=== PATIENT | female | born 1980 | race Caucasian/White ===

== ENCOUNTER 2020-08-09 20:50 | Emergency (ER) | payer MEDICAID, OTHER ==
[~2020-08-09] VITALS: Ht 167.7 cm; Wt 63.5 kg
[2020-08-09 20:57] VITALS: BP 110/63
--- NOTE | 2020-08-09 21:04 | ED Upper Extremity ---
General Chief Complaint: Upper Extremity Stated Complaint: FALL - L ELBOW/R WRIST PAIN Source: patient Exam Limitations: no limitations History of Present Illness Date Seen by Provider: Aug 09, 2020 Time Seen by Provider: 21:02 Initial Comments To ER with left elbow and right wrist pain after a fall at home just prior to arrival. 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 Onset: just prior to arrival Severity: moderate Pain/Injury Location: left elbow; right wrist Method of Injury: fell Modifying Factors: Worse With Movement Allergies and Home Medications Patient Home Medication List Home Medication List Reviewed: Yes Review of Systems Constitutional: see HPI EENTM: see HPI Respiratory: no symptoms reported Cardiovascular: no symptoms reported Genitourinary: no symptoms reported Musculoskeletal: see HPI Skin: no symptoms reported Psychiatric/Neurological: No Symptoms Reported Physical Exam Vital Signs Capillary Refill : Height, Weight, BMI Height: '" Weight: lbs. oz. kg; BMI Method: General Appearance: WD/WN, no apparent distress Respiratory: no respiratory distress, no accessory muscle use Shoulder: normal inspection, normal ROM, pain Elbow/Forearm: Left, pain Wrist: Yes normal ROM, Yes ecchymosis, Yes pain Hand: normal inspection, non-tender Neurologic/Psychiatric: alert, normal mood/affect, oriented x 3 Skin: normal color, warm/dry Progress/Results/Core Measures Results/Orders My Orders Orders - VERONICA MILLER APRN Elbow, Left, 3 Views (08/09/20 20:55) Wrist, Right, 3 Views Or More (08/09/20 20:55) Departure Impression Primary Impression: Contusion of wrist Qualified Codes: S60.211A - Contusion of right wrist, initial encounter Additional Impression: Contusion of elbow Qualified Codes: S50.02XA - Contusion of left elbow, initial encounter Disposition: HOME, SELF-CARE Condition: Stable Departure-Patient Inst. Decision time for Depature: 21:04 Referrals: NO,LOCAL PHYSICIAN (PCP/Family) Primary Care Physician VERONICA MILLER APRN Aug 09, 2020 21:04
--- NOTE | 2020-08-09 21:20 | Diagnostic Imaging Report ---
INDICATION: Fall with left elbow pain. EXAMINATION: AP, oblique and lateral views of the left elbow were obtained. FINDINGS: No fracture or acute bony abnormality is seen. Joint spaces are unremarkable. IMPRESSION: Negative left elbow. Dictated by: Dictated on workstation # [id number]
--- NOTE | 2020-08-09 21:21 | Diagnostic Imaging Report ---
INDICATION: Fall with right wrist pain. EXAMINATION: AP, oblique and lateral views of the right wrist were obtained. FINDINGS: No fracture or acute bony abnormality is seen. Joint spaces appear unremarkable. IMPRESSION: Negative right wrist. Dictated by: Dictated on workstation # [id number]
== END 2020-08-09 21:35 | disposition home or self-care (01) ==
LOC: ER 20:53
DX: S50.02XA Contusion of left elbow, initial encounter (principal); S60.211A Contusion of right wrist, initial encounter; W19.XXXA Unspecified fall, initial encounter; Y92.009 Unspecified place in unspecified non-institutional (private) residence as the place of occurrence of the external cause
CPT/HCPCS: 73080; 73110

== ENCOUNTER 2021-01-09 06:40 | Emergency (ER) | payer MEDICAID ==
[~2021-01-09] VITALS: Ht 165 cm; Wt 68.0 kg
[2021-01-09] MEDS ORDERED: KETOROLAC 60 MG/2 ML VIAL IM STA (07:26)
[2021-01-09] MEDS ORDERED: ACETAMINOPHEN 500 MG TAB (TYLENOL) PO STA (07:26)
--- NOTE | 2021-01-09 08:26 | ED General ---
General Chief Complaint: Cough/Cold/Flu Symptoms Stated Complaint: FEVER,CHILLS,SOB,[place] Nursing Triage Note: PT TO ROOM10 PER W/C PT CO OF FEVERS, DRY COUGH [place] 10/10, BODY ACHES SINCE YESTERDAY Nursing Sepsis Screen: Possible Sepsis Risk Source of Information: Patient Exam Limitations: No Limitations History of Present Illness Date Seen by Provider: Jan 09, 2021 Time Seen by Provider: 07:31 Initial Comments Here with report of fever, cough, headache and body aches since yesterday morning. Works as a door dash driver messenger. Does not remember any specific contact with COVID-19. Also has left-sided facial pain with a tooth abscess but is not on antibiotics for the urgent care. She was concerned that this may be the problem. She has 2 middle school children and one is in summer school. No one around her is sick. She is not vaccinated. Timing/Duration: 1-2 Days Severity: Moderate Associated Systoms: Cough, Fever/Chills, Headaches; No Nausea/Vomiting, No Shortness of Air, No Weakness Allergies and Home Medications Allergies Coded Allergies: No Known Allergies (Verified Allergy, Unknown, 08/09/20) Patient Home Medication List Home Medication List Reviewed: Yes Review of Systems Review of Systems Constitutional: see HPI, chills, fever Respiratory: cough; No short of breath Cardiovascular: no symptoms reported Gastrointestinal: no symptoms reported Musculoskeletal: joint pain, muscle pain Skin: no symptoms reported All Other Systems Reviewed Negative Unless Noted: Yes Past Zfcleet-Shdgtx-Ihbjar Hx Past Med/Social Hx: Reviewed Nursing Past Med/Soc Hx Patient Social History Alcohol Use: Denies Use Smoking Status: Never a Smoker 2nd Hand Smoke Exposure: No Recent Infectious Disease Expo: No Recent Hopitalizations: No Seasonal Allergies Seasonal Allergies: No Past Medical History Surgeries: No Tubal Ligation Respiratory: No Cardiac: No Neurological: No : No Last Menstrual Period: Jan 02, 2021 Genitourinary: No Gastrointestinal: No Musculoskeletal: No Endocrine: No HEENT: No Cancer: No Psychosocial: No Integumentary: No Blood Disorders: No Family Medical History Reviewed Nursing Family Hx Physical Exam Vital Signs Vital Signs - First Documented 01/09/21 07:10 Temp 37.9 Pulse 101 Resp 18 B/P (MAP) 99/70 (80) Pulse Ox 97 O2 Delivery Room Air Capillary Refill : Less Than 3 Seconds Height, Weight, BMI Height: '" Weight: lbs. oz. kg; 24.00 BMI Method: General Appearance: WD/WN, Mild Distress HEENT: PERRL/EOMI, Pharyngeal Erythema, Other (Small abscess left upper posterior tooth) Neck: Non Tender, Supple Respiratory: Lungs Clear, Normal Breath Sounds Cardiovascular: No Murmur, Tachycardia Gastrointestinal: Non Tender, Soft Back: Normal Inspection, No CVA Tenderness, No Vertebral Tenderness Neurologic/Psychiatric: Alert, Oriented x3 Skin: Normal Color, Warm/Dry Progress/Results/Core Measures Suspected Sepsis Recent Fever Within 48 Hours: Yes Infection Criteria Present: Suspected New Infection New/Unexplained Altered Menta: No Sepsis Screen: Possible Sepsis Risk SIRS Temperature: Pulse: 101 Respiratory Rate: 18 Blood Pressure 99 /70 Mean: 80 Results/Orders Lab Results Laboratory Tests Test 01/09/21 07:18 Range/Units Influenza Type A (RT-PCR) Not Detected Not Detecte Influenza Type B (RT-PCR) Not Detected Not Detecte SARS-CoV-2 RNA (RT-PCR) Detected H Not Detecte My Orders Orders - MARISELA BELLO MD Influenza A And B By Pcr (01/09/21 07:26) Covid 19 Inhouse Test (01/09/21 07:26) Acetaminophen Tablet (Tylenol Tablet) (01/09/21 07:26) Ketorolac Injection (Toradol Injection) (01/09/21 07:26) Vital Signs/I&O 01/09/21 01/09/21 07:10 07:10 Temp 37.9 Pulse 101 Resp 18 B/P (MAP) 99/70 (80) Pulse Ox 97 O2 Delivery Room Air Capillary Refill : Less Than 3 Seconds Blood Pressure Mean: 80 Progress Note : Progress Note Seen and evaluated. Influenza and Covid screen ordered. Tylenol 1 g p.o. and Toradol 60 mg IM ordered. Monitor patient. 0820: Patient states that she is feeling a little better. 0827: Patient is positive for COVID-19. 0854: Discharged home with return precautions. Patient verbalized understanding of instructions and agreement with plan. Departure Impression Primary Impression: COVID-19 virus infection Disposition: 01 HOME, SELF-CARE Condition: Stable Departure-Patient Inst. Decision time for Depature: 08:27 Referrals: NO,LOCAL PHYSICIAN (PCP/Family) Primary Care Physician Patient Instructions: COVID-19 (DC) Add. Discharge Instructions: All discharge instructions reviewed with patient and/or family. Voiced understanding. You are COVID-19 positive and will require isolation. The health department will contact you for isolation timeframe but it will be a minimum of 10 days since onset of symptoms. You should not go to work or go out into public until cleared by the health department. Your children and close family members living in the house with you will also be quarantined per direction of the health department. They should not go out into public until released by the health department and that starts immediately. You may take Tylenol/acetaminophen 1000 mg every 6-8 hours as needed for fever or pain. You may take ibuprofen 600 mg every 8 hours as needed for fever or pain. Drink plenty of fluids and get plenty of rest. Eat when you are able. You should monitor your oxygen saturations and return to the emergency department if your resting O2 saturation (after sitting for a few minutes) is less than 90%. Return for weakness, breathing problems, persistent vomiting or other concerns as needed. Scripts Amoxicillin (Amoxicillin) 500 Mg Capsule 500 MG PO TID, #21 CAP 0 Refills Prov: MARISELA BELLO MD 01/09/21 MARISELA BELLO MD Jan 09, 2021 08:26
[2021-01-09] MEDS ORDERED: AMOX500C2 PO (08:55)
[2021-01-09 09:07] VITALS: BP 99/63
== END 2021-01-09 09:07 | disposition home or self-care (01) ==
LOC: EDUNIT# 06:40 → ER 06:43
DX: U07.1 COVID-19 (principal)
CPT/HCPCS: 87636; 99284